=== PATIENT | male | born 1945 | race Caucasian/White ===

== ENCOUNTER 2016-12-24 08:39 | Observation (INO) | payer MEDICARE, MEDICAID ==
[2016-12-24] VITALS (10 sets, daily range): BP systolic 141–163; BP diastolic 70–82
[~2016-12-24] VITALS: Ht 175.3 cm; Wt 99.8 kg
--- NOTE | 2016-12-24 07:24 | Anethesia Preoperative Eval ---
Anesthesia Pre-op PMH/ROS General Date of Evaluation: Dec 24, 2016 Anesthesiologist: Jose A ASA Score: ASA 2 Mallampati Score Class I : Soft palate, uvula, fauces, pillars visible Class II: Soft palate, uvula, fauces visible Class III: Soft palate, base of uvula visible Class IV: Only hard plate visible Mallampati Classification: Class II Surgeon: Mariusz Diagnosis: Malfunctioning penile implant Surgical Procedure: Revision penile implant Anesthesia History: none Family History: no anesthesia problems Allergies: Coded Allergies: No Known Allergies (Unverified , 12/23/16) Medications: see eMAR Past Medical History Cardiovascular: Reports: HTN, arrhythmia - afib with bradycardia-baseline HR in the 40s, Denies: CAD, RI, other, valve dz Pulmonary: Denies: COPD, RISA, asthma, other Gastrointestinal/Genitourinary: Reports: other - BPH, Denies: CRI, ESRD, GERD Neurologic/Psychiatric: Denies: CVA, TIA, dementia, depression/anxiety, other Endocrine: Reports: DM, Denies: hypothyroidism, other, steroids HEENT: Denies: ROBINSON (L), ROBINSON (R), cataract (L), cataract (R), glaucoma, other Hematology/Immune: Denies: DVT, anemia, bleeding disorder, other Musculoskeletal/Integumentary: Denies: DDD, DJD, OA, RA, edema, other Other: obesity PSxH Narrative: eye sx, penile implant, lithotripsy Anesthesia Pre-op Phys. Exam Physician Exam see chart Constitutional: NAD Cardiovascular: other - irregular Respiratory: CTA Airway Exam Mallampati Score: Class II MO: limited ROM: limited Anesthesia Pre-op A/P Labs see chart Studies Pre-op Studies: EKG - afib with HR 41bmp Risk Assessment & Plan Assessment: ASA II Plan: GA Status Change Before Surgery: No Pre-Antibiotics Drug: Vanco 1g and gentamycin 80mg Given Within 1 Hr of Incision: Yes Time Given: 10:05 VALORIE ACUNA M.D. Dec 24, 2016 07:24
[~2016-12-24 08:39] MED LIST: Vancomycin 1 GM in D5W 275 ML IVPB ONE
[2016-12-24] MEDS ORDERED: Vancomycin 1gm inj IVPB ONE (09:06)
[2016-12-24] MEDS ORDERED: Bacitracin 50000 Units Vial ONE (09:07)
[2016-12-24] MEDS ORDERED: Surgicel 4in x 8in TOPIC ONE (09:07)
[2016-12-24] MEDS ORDERED: AVODART0.5 MG ORAL (09:35)
[2016-12-24] MEDS ORDERED: ATORVASTATIN CA10 MG ORAL (09:35)
[2016-12-24] MEDS ORDERED: KLOR-CON 88 MEQ ORAL (09:35)
[2016-12-24] MEDS ORDERED: ADALAT20 MG ORAL (09:35)
[2016-12-24] MEDS ORDERED: GLIMEPIRIDE2 MG ORAL (09:35)
[2016-12-24] MEDS ORDERED: BENICAR HCT 401 EAC1 ORAL (09:35)
[2016-12-24] MEDS ORDERED: XARELTO20 MG ORAL (09:35)
[2016-12-24] MEDS ORDERED: LORAZEPAM1 MG ORAL (09:36)
[2016-12-24] MEDS ORDERED: LORAZEPAM0.5 GM MC (09:36)
[2016-12-24] MEDS ORDERED: CAPTOPRIL12.5 MG PO (09:36)
--- NOTE | 2016-12-24 09:52 | Pre-Procedure Note/Attestation ---
Pre-Procedure Note/Attestation Complete Prior to Procedure Planned Procedure: not applicable Procedure Narrative: removal and replacement o0f IPP Indications for Procedure Pre-Operative Diagnosis: non functionin IPP Attestation I attest that I discussed the nature of the procedure; its benefits; risks and complications; and alternatives (and the risks and benefits of such alternatives ), prior to the procedure, with the patient (or the patient's legal energy conservation representative). I attest that, if there was a reasonable possibility of needing a blood transfusion, the patient (or the patient's legal energy conservation representative) was given the [facility] standardized written summary, pursuant to the [employer] Blood Safety Act ([place] Health and Safety Code # 1645, as amended). I attest that I re-evaluated the patient just prior to the surgery and that there has been no change in the patient's H&P, except as documented below: Eladio Vee MD Dec 24, 2016 09:51
--- NOTE | 2016-12-24 09:53 | Brief Operative Note ---
Immediate Post Operative Note Operative Note Pre-op Diagnosis: non functionin IPP Procedure: IPP replacement Post-op Diagnosis: same Post-op Diagnosis: same as pre-op Surgeon: Andrea Vee Anesthesia: general Specimen: yes Complications: none Condition: stable Estimated Blood Loss: minimal Implant(s) used?: Yes Eladio Vee MD Dec 24, 2016 09:53
[2016-12-24] MEDS ORDERED: Lidocaine 1% MPF 10mg/ml 5ml ONE (10:00)
[2016-12-24] MEDS ORDERED: Sterile Water Irrig 1000ml IRRIG ONE (10:00)
[2016-12-24] MEDS ORDERED: Propofol 10mg/ml 20ml IV ONE ×2 (10:00→10:06)
[2016-12-24] MEDS ORDERED: fentaNYL 100 mcg/2 mL IV ONE (10:00)
--- NOTE | 2016-12-24 10:42 | Immediate Post-Op Evaluation ---
Immediate Post-Op Evalulation Immediate Post-Op Evalulation Procedure: Revision penile prosthesis Date of Evaluation: Dec 24, 2016 Time of Evaluation: 12:41 IV Fluids: 600 Blood Products: 0 Estimated Blood Loss: 25 Urinary Output: 0 Blood Pressure Systolic: 141 Blood Pressure Diastolic: 73 Pulse Rate: 54 Respiratory Rate: 16 O2 Sat by Pulse Oximetry: 96 Temperature (Fahrenheit): 97 Pain Score (1-10): 0 Nausea: No Vomiting: No Complications 0 Patient Status: awake, reacts, patent, none Hydration Status: adequate Drug: Vanco 1g, gentamycin 80mg Given Within 1 Hr of Incision: Yes Time Given: 10:05 VALORIE ACUNA M.D. Dec 24, 2016 10:42
[2016-12-24] MEDS ORDERED: NS Irrig 1000ml IRRIG ONE (10:43)
[2016-12-24] MEDS ORDERED: LR 1000ml 1,000 ML IVLG SCH (10:51)
--- NOTE | 2016-12-24 10:59 | 48 Hour Post Anesthesia Eval ---
Post Anesthesia Evaluation Procedure: Revision penile prosthesis Date of Evaluation: Dec 24, 2016 Airway: patent Nausea: No Vomiting: No Pain Intensity: 0 Hydration Status: adequate Cardiopulmonary Status: at baseline Mental Status/LOC: patient returned to baseline Post-Anesthesia Complications: 0 Follow-up care needed: ready to discharge VALORIE ACUNA M.D. Dec 24, 2016 10:59
[2016-12-24] MEDS ORDERED: DiphenhydrAMINE 50mg/ml Inj IVP PRN (11:00)
[2016-12-24] MEDS ORDERED: Midazolam 2mg/2ml Inj IVP PRN (11:00)
[2016-12-24] MEDS ORDERED: Metoclopramide 10mg/2ml Inj IVP PRN (11:00)
[2016-12-24] MEDS ORDERED: Hydromorphone 0.5mg/0.5ml inj IVP PRN (11:00)
[2016-12-24] MEDS ORDERED: LORazepam Inj 2mg/ml 1ml IV PRN ×3 (11:00→22:45)
[2016-12-24] MEDS ORDERED: fentaNYL 100 mcg/2 mL IV PRN (11:00)
[2016-12-24 13:42] LABS: BASOPHILS % (AUTO) 0.7 % (0.0-2.0); EOSINOPHILS % (AUTO) 0.9 % (0.0-3.0); LYMPHOCYTES % (AUTO) 30.5 % (20.0-45.0); MEAN CORPUSCULAR HEMOGLOBIN 30.9 PG (27.0-31.0); MEAN CORPUSCULAR HGB CONC 32.2 G/DL (32.0-36.0); MEAN CORPUSCULAR VOLUME 96 FL (80-99); MEAN PLATELET VOLUME 8.5 FL (6.5-10.1); MONOCYTES % (AUTO) 11.1 % (1.0-10.0); NEUTROPHILS % (AUTO) 56.9 % (45.0-75.0); PLATELET COUNT 229 K/UL (150-450); RED BLOOD COUNT 4.51 M/UL (4.70-6.10); RED CELL DISTRIBUTION WIDTH 12.3 % (11.6-14.8); WHITE BLOOD COUNT 4.8 K/UL (4.8-10.8)
[2016-12-24 14:07] LABS: ANION GAP 10 (5-15); CALCIUM 8.9 mg/dL (8.6-10.2); CARBON DIOXIDE 26 mEQ/L (20-30); CHLORIDE 101 mEQ/L (98-107); CREATININE 1.3 mg/dL (0.7-1.2); HEMOLYSIS 9; POTASSIUM 3.6 mEQ/L (3.4-4.9); SODIUM 137 mEQ/L (135-145)
[2016-12-24] MEDS ORDERED: Ketorolac 30mg Inj IV PRN (14:30)
--- NOTE | 2016-12-24 14:38 | History and Physical ---
History of Present Illness General Date patient seen: Dec 24, 2016 Present Illness HPI 71 year old male with morbid obesity, DM, HTN admitted for removal and replacement of penile implant. Post operative pt is admitted for post op care. Allergies: Coded Allergies: No Known Allergies (Unverified , 12/23/16) Medication History Scheduled Atorvastatin Calcium* (Lipitor*), 10 MG ORAL BEDTIME, (Reported) Captopril (Captopril), 2.5 MG PO DAILY, (Reported) Dutasteride (Avodart), 0.5 MG ORAL DAILY, (Reported) Glimepiride (Glimepiride), 2 MG ORAL TID, (Reported) Lorazepam* (Lorazepam*), 1 MG ORAL DAILY, (Reported) Nifedipine (Nifedipine*), 60 MG ORAL DAILY, (Reported) Olmesartan/Hydrochlorothiazide 40-25MG (Benicar Hct 40-25 Mg Tablet), 1 TAB ORAL DAILY, (Reported) Potassium Chloride (Klor-Con 8), 8 MEQ ORAL DAILY, (Reported) Rivaroxaban (Xarelto), 20 MG ORAL DAILY, (Reported) Patient History Healthcare decision maker N Resuscitation status Advanced Directive on File Past Medical/Surgical History Past Medical/Surgical History: (1) Diabetes mellitus (2) HTN (hypertension) Review of Systems All Other Systems: negative except mentioned in HPI Physical Exam General Appearance: WD/WN Lines, tubes and drains: peripheral, central line HEENT: normocephalic, anicteric Neck: non-tender, normal alignment Respiratory/Chest: chest wall non-tender, lungs clear, normal breath sounds Breasts: no masses Cardiovascular/Chest: normal peripheral pulses Abdomen: normal bowel sounds, non tender Extremities: normal range of motion Last 24 Hour Vital Signs Date Time Temp Pulse Resp B/P Pulse Ox O2 Delivery O2 Flow Rate FiO2 12/24/16 13:45 98.0 43 20 163/75 98 Nasal Cannula 2.0 12/24/16 13:30 40 20 160/70 98 Nasal Cannula 2.0 12/24/16 13:15 46 20 155/73 98 Nasal Cannula 2.0 12/24/16 13:00 49 20 149/77 98 Nasal Cannula 2.0 12/24/16 12:46 49 20 150/82 99 Nasal Cannula 2.0 12/24/16 12:41 51 20 148/77 99 Room Air 12/24/16 12:40 54 16 96 12/24/16 12:36 97.0 51 20 141/73 99 Room Air 12/24/16 09:10 98.1 52 20 156/82 98 Room Air Laboratory Tests Test 12/24/16 13:20 White Blood Count 4.8 K/UL (4.8-10.8) Red Blood Count 4.51 M/UL (4.70-6.10) L Hemoglobin 13.9 G/DL (14.2-18.0) L Hematocrit 43.3 % (42.0-52.0) Mean Corpuscular Volume 96 FL (80-99) Mean Corpuscular Hemoglobin 30.9 PG (27.0-31.0) Mean Corpuscular Hemoglobin Concent 32.2 G/DL (32.0-36.0) Red Cell Distribution Width 12.3 % (11.6-14.8) Platelet Count 229 K/UL (150-450) Mean Platelet Volume 8.5 FL (6.5-10.1) Neutrophils (%) (Auto) 56.9 % (45.0-75.0) Lymphocytes (%) (Auto) 30.5 % (20.0-45.0) Monocytes (%) (Auto) 11.1 % (1.0-10.0) H Eosinophils (%) (Auto) 0.9 % (0.0-3.0) Basophils (%) (Auto) 0.7 % (0.0-2.0) Sodium Level 137 mEQ/L (135-145) Potassium Level 3.6 mEQ/L (3.4-4.9) Chloride Level 101 mEQ/L (98-107) Carbon Dioxide Level 26 mEQ/L (20-30) Anion Gap 10 (5-15) Blood Urea Nitrogen 22 mg/dL (7-23) Creatinine 1.3 mg/dL (0.7-1.2) H Estimat Glomerular Filtration Rate mL/min (>60) Glucose Level 110 mg/dL (74-106) H Calcium Level 8.9 mg/dL (8.6-10.2) Height (Feet): 5 Height (Inches): 9.00 Weight (Pounds): 220 Medications Current Medications Medications (Trade) Dose Ordered Sig/Silvano Route PRN Reason Start Time Stop Time Status Last Admin Dose Admin Acetaminophen (Tylenol) 650 mg Q4H PRN ORAL fever 12/24/16 14:45 01/23/17 14:44 UNV Acetaminophen (Tylenol) 650 mg Q6H PRN ORAL Mild Pain (Pain Scale 1-3) 12/24/16 14:30 01/23/17 14:29 Acetaminophen 650 mg 650 mg Q4H PRN ORAL T>100.5 12/24/16 14:30 01/23/17 14:29 Al Hydroxide/Mg Hydroxide (Mylanta II) 30 ml Q6H PRN ORAL dyspepsia 12/24/16 14:45 01/23/17 14:44 UNV Atorvastatin Calcium (Lipitor) 10 mg BEDTIME ORAL 12/24/16 21:00 01/23/17 20:59 UNV Captopril (Capoten) 2.5 mg EVERY 8 HOURS ORAL 12/24/16 22:00 01/23/17 21:59 UNV Dextrose (Dextrose 50%) STAT PRN IV Hypoglycemia 12/24/16 14:45 01/23/17 14:44 UNV Dextrose (Dextrose 50%) STAT PRN IV Hypoglycemia 12/24/16 14:45 01/23/17 14:44 UNV Dextrose/ Electrolytes (D5 0.45%NS W/ KCl 20mEq) 1,000 ml @ 100 mls/hr Q10H IV 12/24/16 16:00 01/23/17 15:59 Docusate Sodium (Colace) 100 mg TWICE A DAY ORAL 12/24/16 18:00 01/23/17 17:59 Heparin Sodium (Porcine) (Heparin 5000 units/ml) 5,000 units EVERY 12 HOURS SUBQ 12/24/16 21:00 01/23/17 20:59 UNV Hydromorphone HCl (Dilaudid) 1 mg Q3H PRN IVP pain score 4-6 12/24/16 15:00 12/31/16 14:59 Insulin Aspart (NovoLOG) BEFORE MEALS AND HS SUBQ 12/24/16 16:30 01/23/17 16:29 UNV Ketorolac Tromethamine (Toradol 30mg) 15 mg Q6H PRN IV BREAKTHROUGH PAIN 12/24/16 14:30 12/29/16 14:29 Lorazepam (Ativan 2mg/ml 1ml) 0.5 mg Q4H PRN IV For Anxiety 12/24/16 14:45 12/31/16 14:44 UNV Lorazepam (Ativan) 1 mg DAILY ORAL 12/25/16 09:00 01/01/17 08:59 UNV Morphine Sulfate (Morphine Sulfate) 1 mg EVERY 4 HOURS PRN IVP For Pain 12/24/16 14:45 12/31/16 14:44 UNV Ondansetron HCl (Zofran) 4 mg Q6H PRN IVP Nausea & Vomiting 12/24/16 14:30 01/23/17 14:29 Ondansetron HCl (Zofran) 4 mg Q6H PRN IVP Nausea & Vomiting 12/24/16 14:45 01/23/17 14:44 UNV Polyethylene Glycol (Miralax) 17 gm HSPRN PRN ORAL Constipation 12/24/16 14:45 01/23/17 14:44 UNV Temazepam (Restoril) 7.5 mg HSPRN PRN ORAL Insomnia 12/24/16 21:00 12/31/16 20:59 Vancomycin HCl/ Dextrose (Vancomycin 1250mg/D5W 250ml) 250 ml @ 166.667 mls/hr ONCE ONCE IVPB 12/24/16 18:00 12/24/16 19:29 Zolpidem Tartrate (Ambien) 5 mg HSPRN PRN ORAL Insomnia 12/24/16 14:45 01/23/17 14:44 UNV Assessment/Plan Problem List: (1) Malfunction of penile prosthesis ICD Codes: T83.490A - Other mechanical complication of implanted penile prosthesis, initial encounter SNOMED: 741662187 (2) Diabetes mellitus ICD Codes: E11.9 - Type 2 diabetes mellitus without complications SNOMED: 34495210 (3) HTN (hypertension) ICD Codes: I10 - Essential (primary) hypertension SNOMED: 86612010 Assessment/Plan monitor BP pain management keep rodriguez continue abx dvt prophylaxis hold SARAH Garrido Dec 24, 2016 14:38
[2016-12-24] MEDS ORDERED: Enalaprilat 2.5mg/2ml Inj IV PRN (14:45)
[2016-12-24] MEDS ORDERED: Mylanta II UD 30ml ORAL PRN (14:45)
[2016-12-24] MEDS ORDERED: Zolpidem 5mg tab ORAL PRN (14:45)
[2016-12-24] MEDS ORDERED: Miralax 17gm pkt ORAL PRN (14:45)
[2016-12-24] MEDS ORDERED: Morphine Sulfate 2mg/ml Inj IVP PRN (14:45)
[2016-12-24] MEDS ORDERED: HYDROmorphone 1mg/ml Carpuject IVP PRN (15:00)
[2016-12-24] MEDS ORDERED: D5 1/2NS w/KCl 20mEq 1,000 ML IV SCH (16:00)
[2016-12-24] MEDS: NovoLOG Insulin Flexpen SUBQ SCH ×2 (16:30→20:56)
[2016-12-24] MEDS ORDERED: Vancomycin 1250mg/D5W 250ml IVPB ONE (18:00)
[2016-12-24] MEDS ORDERED: Docusate 100mg cap ORAL SCH (18:00)
[2016-12-24] MEDS ORDERED: Heparin 5000 units/ml inj SUBQ SCH (21:00)
[2016-12-24] MEDS ORDERED: Captopril 25mg tab ORAL SCH (22:00)
[2016-12-24] MEDS: Captopril 25mg tab ORAL SCH (22:15)
[2016-12-24] MEDS: D5 1/2NS w/KCl 20mEq 1,000 ML IV SCH (22:15)
[2016-12-25] MEDS ORDERED: HYDROmorphone 1mg/ml Carpuject IVP PRN
[2016-12-25] MEDS ORDERED: Ketorolac 30mg Inj IV PRN (02:30)
[2016-12-25] MEDS ORDERED: Mylanta II UD 30ml ORAL PRN (02:45)
[2016-12-25 04:00] VITALS: BP 137/75
[2016-12-25] MEDS: Captopril 25mg tab ORAL SCH ×2 (06:00→14:53)
[2016-12-25 06:19] LABS: BASOPHILS % (AUTO) 0.9 % (0.0-2.0); EOSINOPHILS % (AUTO) 0.5 % (0.0-3.0); LYMPHOCYTES % (AUTO) 14.3 % (20.0-45.0); MEAN CORPUSCULAR HEMOGLOBIN 31.6 PG (27.0-31.0); MEAN CORPUSCULAR HGB CONC 33.1 G/DL (32.0-36.0); MEAN CORPUSCULAR VOLUME 95 FL (80-99); MEAN PLATELET VOLUME 9.1 FL (6.5-10.1); MONOCYTES % (AUTO) 8.9 % (1.0-10.0); NEUTROPHILS % (AUTO) 75.5 % (45.0-75.0); PLATELET COUNT 248 K/UL (150-450); RED BLOOD COUNT 4.62 M/UL (4.70-6.10); RED CELL DISTRIBUTION WIDTH 12.2 % (11.6-14.8); WHITE BLOOD COUNT 7.2 K/UL (4.8-10.8)
[2016-12-25 06:53] LABS: ALANINE AMINOTRANSFERASE 33 U/L (3-41); ALBUMIN/GLOBULIN RATIO 1.2 (1.0-2.7); ANION GAP 9 (5-15); ASPARTATE AMINO TRANSFERASE 30 U/L (5-40); CALCIUM 8.9 mg/dL (8.6-10.2); CARBON DIOXIDE 27 mEQ/L (20-30); CHLORIDE 100 mEQ/L (98-107); CHOLESTEROL 170 mg/dL (< 200); CREATININE 1.5 mg/dL (0.7-1.2); HEMOLYSIS 25; LDL CHOLESTEROL (CALC.) 114 mg/dL (60-99); SODIUM 136 mEQ/L (135-145); TOTAL PROTEIN 6.8 g/dL (6.6-8.7)
[2016-12-25 07:02] LABS: MAGNESIUM 1.8 mg/dL (1.7-2.5); PHOSPHORUS 3.7 mg/dL (2.5-4.8)
[2016-12-25 07:19] LABS: CRP QUANT 0.7 mg/dL (< 0.5)
[2016-12-25] MEDS: NovoLOG Insulin Flexpen SUBQ SCH ×2 (07:34→11:30)
[2016-12-25 08:00] VITALS: BP 136/63
[2016-12-25] MEDS: D5 1/2NS w/KCl 20mEq 1,000 ML IV SCH (08:57)
[2016-12-25] MEDS ORDERED: LORazepam 1mg tab ORAL SCH (09:00)
[2016-12-25] MEDS ORDERED: Docusate 100mg cap ORAL SCH (09:00)
[2016-12-25] MEDS ORDERED: Heparin 5000 units/ml inj SUBQ SCH (09:00)
[2016-12-25] MEDS ORDERED: Tubing IV Secondary IV ONE (10:48)
[2016-12-25] MEDS ORDERED: NS 275ml ONE (10:48)
--- NOTE | 2016-12-25 11:20 | 48 Hour Post Anesthesia Eval ---
Post Anesthesia Evaluation Procedure: Revision penile prosthesis Date of Evaluation: Dec 25, 2016 Time of Evaluation: 11:20 Nausea: No Vomiting: No Hydration Status: adequate Follow-up care needed: N/A Yvette Morrison MD Dec 25, 2016 11:20
[2016-12-25 12:00] VITALS: BP 131/72
[2016-12-25] MEDS ORDERED: Gentamicin 100mg/50ml Premix 50 ML IVPB ONE (12:00)
--- NOTE | 2016-12-25 12:26 | Pulmonology Progress Note ---
Assessment/Plan Problems: (1) HTN (hypertension) (2) Diabetes mellitus (3) Malfunction of penile prosthesis Assessment/Plan tolerated the procedure very well no pain Brambila dced waiting for pt to urinate on Xarelto, ? reason? Subjective ROS Limited/Unobtainable: No Interval Events: no pain, waiting to be discharged Allergies: Coded Allergies: No Known Allergies (Unverified , 12/23/16) Objective Last 24 Hour Vital Signs Date Time Temp Pulse Resp B/P Pulse Ox O2 Delivery O2 Flow Rate FiO2 12/25/16 08:00 97.9 40 18 136/63 95 Room Air 12/25/16 06:00 137/75 12/25/16 04:00 98.2 37 18 137/75 97 Nasal Cannula 2.0 12/24/16 22:15 137/70 12/24/16 21:39 Nasal Cannula 2.0 28 12/24/16 21:00 97 Nasal Cannula 2.0 28 12/24/16 19:57 161/74 12/24/16 19:53 41 20 161/74 97 Nasal Cannula 2.0 12/24/16 16:00 45 12/24/16 16:00 97.0 41 21 159/73 98 Room Air 12/24/16 13:45 98.0 43 20 163/75 98 Nasal Cannula 2.0 12/24/16 13:30 40 20 160/70 98 Nasal Cannula 2.0 12/24/16 13:15 46 20 155/73 98 Nasal Cannula 2.0 12/24/16 13:00 49 20 149/77 98 Nasal Cannula 2.0 12/24/16 12:46 49 20 150/82 99 Nasal Cannula 2.0 12/24/16 12:41 51 20 148/77 99 Room Air 12/24/16 12:40 54 16 96 12/24/16 12:36 97.0 51 20 141/73 99 Room Air Intake and Output 12/24/16 12/25/16 19:00 07:00 Intake Total 1000 ml 416.667 ml Output Total 675 ml 2150 ml Balance 325 ml -1733.333 ml Intake Oral 150 ml IV Total 1000 ml 266.667 ml Output Urine Total 650 ml 2150 ml Estimated Blood Loss 25 ml # Voids 1 # Bowel Movements 1 General Appearance: WD/WN, no acute distress HEENT: normocephalic, atraumatic Respiratory/Chest: chest wall non-tender, lungs clear Cardiovascular: normal peripheral pulses, normal rate Abdomen: normal bowel sounds, soft, non tender Genitourinary: normal external genitalia Extremities: no cyanosis Skin: no lesions Laboratory Tests 12/24/16 13:20: White Blood Count 4.8, Red Blood Count 4.51L, Hemoglobin 13.9L, Hematocrit 43.3 , Mean Corpuscular Volume 96, Mean Corpuscular Hemoglobin 30.9, Mean Corpuscular Hemoglobin Concent 32.2, Red Cell Distribution Width 12.3, Platelet Count 229, Mean Platelet Volume 8.5, Neutrophils (%) (Auto) 56.9, Lymphocytes (% ) (Auto) 30.5, Monocytes (%) (Auto) 11.1H, Eosinophils (%) (Auto) 0.9, Basophils (%) (Auto) 0.7, Sodium Level 137, Potassium Level 3.6, Chloride Level 101, Carbon Dioxide Level 26, Anion Gap 10, Blood Urea Nitrogen 22, Creatinine 1.3H, Estimat Glomerular Filtration Rate , Glucose Level 110H, Calcium Level 8.9 12/25/16 06:00: White Blood Count 7.2, Red Blood Count 4.62L, Hemoglobin 14.6, Hematocrit 44.1, Mean Corpuscular Volume 95, Mean Corpuscular Hemoglobin 31.6H, Mean Corpuscular Hemoglobin Concent 33.1, Red Cell Distribution Width 12.2, Platelet Count 248, Mean Platelet Volume 9.1, Neutrophils (%) (Auto) 75.5H, Lymphocytes (%) (Auto) 14.3L, Monocytes (%) (Auto) 8.9, Eosinophils (%) (Auto) 0.5, Basophils (%) (Auto ) 0.9, Sodium Level 136, Potassium Level 4.0, Chloride Level 100, Carbon Dioxide Level 27, Anion Gap 9, Blood Urea Nitrogen 21, Creatinine 1.5H, Estimat Glomerular Filtration Rate , Glucose Level 154H, Calcium Level 8.9, Erythrocyte Sedimentation Rate 16, Phosphorus Level 3.7, Magnesium Level 1.8, Total Bilirubin 0.8, Aspartate Amino Transf (AST/SGOT) 30, Alanine Aminotransferase ( ALT/SGPT) 33, Alkaline Phosphatase 56, C-Reactive Protein, Quantitative 0.7H, Total Protein 6.8, Albumin 3.8, Globulin 3.0, Albumin/Globulin Ratio 1.2, Triglycerides Level 108, Cholesterol Level 170, LDL Cholesterol 114H, HDL Cholesterol 34, Cholesterol/HDL Ratio 5.0H Current Medications Medications (Trade) Dose Ordered Sig/Silvano Route PRN Reason Start Time Stop Time Status Last Admin Dose Admin Acetaminophen (Tylenol) 650 mg Q4H PRN ORAL T>100.5 12/24/16 22:30 01/23/17 22:29 Acetaminophen (Tylenol) 650 mg Q6H PRN ORAL Mild Pain (Pain Scale 1-3) 12/25/16 02:30 01/24/17 02:29 Al Hydroxide/Mg Hydroxide (Mylanta II) 30 ml Q6H PRN ORAL dyspepsia 12/25/16 02:45 01/24/17 02:44 Atorvastatin Calcium (Lipitor) 10 mg BEDTIME ORAL 12/25/16 21:00 01/24/17 20:59 Captopril (Capoten) 25 mg EVERY 8 HOURS ORAL 12/24/16 22:15 01/23/17 22:14 Dextrose (Dextrose 50%) STAT PRN IV Hypoglycemia 12/25/16 14:45 01/24/17 14:44 Dextrose/ Electrolytes (D5 0.45%NS W/ KCl 20mEq) 1,000 ml @ 100 mls/hr Q10H IV 12/24/16 22:15 01/23/17 22:14 12/25/16 08:57 Docusate Sodium (Colace) 100 mg TWICE A DAY ORAL 12/25/16 09:00 01/24/17 08:59 12/25/16 08:56 Gentamicin Sulfate/Sodium Chloride (Gentamicin 100mg/50ml Premix) 50 ml @ 100 mls/hr ONCE ONCE IVPB 12/25/16 12:00 12/25/16 12:29 Heparin Sodium (Porcine) (Heparin 5000 units/ml) 5,000 units EVERY 12 HOURS SUBQ 12/25/16 09:00 01/24/17 08:59 12/25/16 08:58 Hydromorphone HCl (Dilaudid) 1 mg Q3H PRN IVP pain score 4-6 12/25/16 00:00 01/01/17 00:00 Insulin Aspart (NovoLOG) BEFORE MEALS AND HS SUBQ 12/25/16 06:30 01/24/17 06:29 12/25/16 07:34 Ketorolac Tromethamine (Toradol 30mg) 15 mg Q6H PRN IV BREAKTHROUGH PAIN 12/25/16 02:30 12/30/16 02:29 Lorazepam (Ativan 2mg/ml 1ml) 0.5 mg Q4H PRN IV For Anxiety 12/24/16 22:45 12/31/16 22:44 Ondansetron HCl (Zofran) 4 mg Q6H PRN IVP Nausea & Vomiting 12/25/16 02:30 01/24/17 02:29 Polyethylene Glycol (Miralax) 17 gm HSPRN PRN ORAL Constipation 12/25/16 14:45 01/24/17 14:44 Temazepam 7.5 mg 7.5 mg HSPRN PRN ORAL Insomnia 12/25/16 21:00 01/01/17 20:59 Vancomycin HCl 1 gm/Dextrose 275 ml @ 183.708 mls/hr ONCE ONCE IVPB 12/25/16 12:45 12/25/16 14:14 SARAH LEMA Dec 25, 2016 12:26
[2016-12-25] MEDS ORDERED: Vancomycin 1 GM in D5W 275 ML IVPB ONE (12:45)
[2016-12-25] MEDS ORDERED: Miralax 17gm pkt ORAL PRN (14:45)
[2016-12-25 14:53] VITALS: BP 131/72
--- NOTE | 2016-12-27 03:00 | Discharge Summary 2 SIG ---
DATE OF ADMISSION: 12/24/2016 DATE OF DISCHARGE: 12/25/2016 BOOKKEEPERS SUPERVISOR: Fareed Hardy M.D. BRIEF HOSPITAL COURSE: The patient is a 71-year-old male with morbid obesity, diabetes, and hypertension and had a nonfunctioning penile implant. The patient was admitted on 12/24/2016 and underwent IPP replacement by Dr. Vee. Postoperatively, he was given pain management and blood pressure control. He was continued on IV antibiotic, Zosyn. He was given incentive spirometry. He had good pain control. Brambila was discontinued. The patient urinated. He was eventually discharged home. FINAL DIAGNOSES: 1. Nonfunctioning inflatable penile prosthesis, status post replacement. 2. Diabetes mellitus. 3. Hypertension. Eladio Vee M.D. I have been assigned to dictate discharge summary on this account and I was not involved in the patient's management. Maribell Valdez N.P. DR: Jena JOB#: [id number] CC: CINTHIA
--- NOTE | 2016-12-30 20:46 | Operative Note - Dictated ---
DATE OF OPERATION: 12/24/2016 PREOPERATIVE DIAGNOSES: Poorly functioning penile prosthesis. POSTOPERATIVE DIAGNOSES: Poorly functioning penile prosthesis. OPERATION: Removal of two-piece penile prosthesis and placement of three-piece penile prosthesis. SURGEON: Eladio Vee M.D. ANESTHESIA: General. FINDINGS: Nonfunctioning penile prosthesis. INDICATION FOR SURGERY: The patient had several years ago prosthesis placed started to deflate in the middle of intercourse. Treatment options were explained to him and he agreed for substitution of the prosthesis. All potential complications were explained. He signed a consent. He was brought to the operating room, placed in lithotomy position, prepped and draped in a standard fashion. Under general anesthesia, a penoscrotal incision was made and the old prosthesis was removed for pathologic examination. After that, corpora was copiously irrigated and 27 cm size was noticed and 21 cm prosthesis with 6 cm rear tip adapters were placed. Cylinders were secured and the corpora was closed in a continuous fashion. A reservoir was placed in the retrovesical space using infra-inguinal approach and filled with 100 mL of normal saline. After that, a pump was placed position, secured, and the wound was closed in 3 layers and subcuticular closure for the skin. The patient tolerated the procedure well. No evidence of complications. Eladio Vee M.D. DR: DA JOB#: [id number] CC:
== END 2016-12-25 16:00 | disposition home or self-care (01) ==
LOC: SUR 08:39 → INTOOBSV 14:15 → 2E 14:15 → OBSVTOIN 14:15 → 3E 22:30
DX: T83.410A Breakdown (mechanical) of implanted penile prosthesis, initial encounter (principal); Y83.8 Other surgical procedures as the cause of abnormal reaction of the patient, or of later complication, without mention of misadventure at the time of the procedure; Y92.89 Other specified places as the place of occurrence of the external cause; E11.9 Type 2 diabetes mellitus without complications; Z79.4 Long term (current) use of insulin; Z79.84 Long term (current) use of oral hypoglycemic drugs; E66.01 Morbid (severe) obesity due to excess calories; I48.91 Unspecified atrial fibrillation; R00.1 Bradycardia, unspecified; N40.0 Benign prostatic hyperplasia without lower urinary tract symptoms
CPT/HCPCS: 36415 ×2; 54410; 80048; 80053; 80061; 82962 ×2; 83735; 84100; 85025 ×2; 85651; 86140; 94760; C1813; G0378 ×2; J1580 ×3; J1644; J1815 ×2; J2405; J2704; J3010; J3370 ×3; J7050; 94003; 94150

== ENCOUNTER 2018-02-03 07:30 | Inpatient (IN) | payer MEDICARE, MEDICAID ==
[~2018-02-03] VITALS: Ht 175.3 cm; Wt 101.6 kg
[~2018-02-03 07:30] MED LIST changes: +ADALAT20 MG ORAL; +ATORVASTATIN CA10 MG ORAL; +AVODART0.5 MG ORAL; +BENICAR HCT 401 EAC1 ORAL; +CAPTOPRIL12.5 MG PO; +GLIMEPIRIDE2 MG ORAL; +KLOR-CON 88 MEQ ORAL; +LORAZEPAM0.5 GM MC; +LORAZEPAM1 MG ORAL; -Vancomycin 1 GM in D5W 275 ML IVPB ONE; +XARELTO20 MG ORAL
[2018-05-05] VITALS (10 sets, daily range): BP systolic 91–138; BP diastolic 62–88
[2018-05-05] MEDS ORDERED: ceFAZolin sod 1 GM in NS 55 ML IVPB ONE (07:00)
[2018-05-05] MEDS ORDERED: MAGNESIUM OXID500 M1 PO (12:19)
[2018-05-05] MEDS ORDERED: DEXILANT60 MG ORAL (12:20)
[2018-05-05] MEDS ORDERED: SPIRONOLACTONE25 MG ORAL (12:21)
[2018-05-05] MEDS ORDERED: REPATHA SY140 MG/1 M SQ (12:23)
[2018-05-05] MEDS ORDERED: ADVAIR 250-501 EACH INH (12:24)
[2018-05-05] MEDS ORDERED: XARELTO10 MG ORAL (12:25)
[2018-05-05] MEDS ORDERED: FUROSEMIDE20 M1 ORAL (12:26)
[2018-05-05] MEDS ORDERED: CATAPRES-TTS 31 EACH TDERMAL (12:29)
[2018-05-05] MEDS ORDERED: NORVASC5 MG ORAL (12:30)
[2018-05-05] MEDS ORDERED: CARDURA1 MG ORAL (12:31)
--- NOTE | 2018-05-05 14:58 | Pre-Procedure Note/Attestation ---
Pre-Procedure Note/Attestation Complete Prior to Procedure Planned Procedure: not applicable Procedure Narrative: TURP Indications for Procedure Pre-Operative Diagnosis: hematuria Attestation I attest that I discussed the nature of the procedure; its benefits; risks and complications; and alternatives (and the risks and benefits of such alternatives ), prior to the procedure, with the patient (or the patient's legal aircraft sales representative). I attest that, if there was a reasonable possibility of needing a blood transfusion, the patient (or the patient's legal aircraft sales representative) was given the [facility] standardized written summary, pursuant to the [place]rav[place] Blood Safety Act ([place] Health and Safety Code # 1645, as amended). I attest that I re-evaluated the patient just prior to the surgery and that there has been no change in the patient's H&P, except as documented below: Eladio Vee MD May 05, 2018 14:58
[2018-05-05] MEDS ORDERED: LR 1000ml 1,000 ML IVLG SCH (15:28)
[2018-05-05] MEDS ORDERED: HYDROcodone/Acetamin 7.5/325 tab ORAL PRN (15:30)
[2018-05-05] MEDS ORDERED: DiphenhydrAMINE 50mg/ml Inj IVP PRN (15:30)
[2018-05-05] MEDS ORDERED: LORazepam Inj 2mg/ml 1ml IV PRN (15:30)
[2018-05-05] MEDS ORDERED: Hydromorphone 0.5mg/0.5ml inj IVP PRN (15:30)
[2018-05-05] MEDS ORDERED: Acetaminophen (Non formulary) 100 ML IV ONE (15:30)
[2018-05-05] MEDS ORDERED: oxyCODONE HCL/Acetaminophen 5/325mg ORAL PRN (15:30)
[2018-05-05] MEDS ORDERED: Meperidine 50mg/ml Inj(FOR RIGORS ONLY) IVP PRN (15:30)
[2018-05-05] MEDS ORDERED: Metoclopramide 10mg/2ml Inj IVP PRN (15:30)
[2018-05-05] MEDS ORDERED: fentaNYL 100 mcg/2 mL IV PRN (15:30)
[2018-05-05] MEDS ORDERED: Ketorolac 30mg Inj IV PRN ×2 (15:30)
[2018-05-05] MEDS ORDERED: Norco 5mg/325mg tab ORAL PRN ×2 (15:30→17:00)
[2018-05-05] MEDS ORDERED: Midazolam 2mg/2ml Inj IVP PRN (15:30)
[2018-05-05] MEDS ORDERED: Atropine Sulfate 0.4mg/ml inj IVP PRN (15:30)
--- NOTE | 2018-05-05 15:32 | Anethesia Preoperative Eval ---
Anesthesia Pre-op PMH/ROS General Date of Evaluation: May 05, 2018 Time of Evaluation: 16:32 Anesthesiologist: Kenton ASA Score: ASA 3 Mallampati Score Class I : Soft palate, uvula, fauces, pillars visible Class II: Soft palate, uvula, fauces visible Class III: Soft palate, base of uvula visible Class IV: Only hard plate visible Mallampati Classification: Class II Surgeon: Mariusz Diagnosis: BPH Surgical Procedure: TURP Anesthesia History: none Family History: no anesthesia problems Allergies: Coded Allergies: No Known Allergies (Unverified , 05/04/18) Medications: see eMAR Patient NPO?: Yes NPO Date: May 04, 2018 NPO Time: 1999 Past Medical History Cardiovascular: Reports: HTN, CAD, other - Pacemaker Endocrine: Reports: DM HEENT: Reports: cataract (L), cataract (R) Anesthesia Pre-op Phys. Exam Physician Exam Last Vital Signs Date Time Temp Pulse Resp B/P (MAP) Pulse Ox O2 Delivery O2 Flow Rate FiO2 05/05/18 12:42 Room Air 05/05/18 12:41 98.1 70 18 137/78 (97) 96 Constitutional: NAD Neurologic: CN 2-12 intact Cardiovascular: RRR Respiratory: CTA Gastrointestinal: S/NT/ND Airway Exam Mallampati Score: Class II MO: full ROM: limited Teeth: missing Anesthesia Pre-op A/P Risk Assessment & Plan Assessment: ASA 3 Plan: GA Status Change Before Surgery: No Pre-Antibiotics Dru grams Ancef IV Given Within 1 Hr of Incision: Yes Time Given: 16:37 Ezio Fung MD May 05, 2018 15:32
--- NOTE | 2018-05-05 15:33 | Immediate Post-Op Evaluation ---
Immediate Post-Op Evalulation Immediate Post-Op Evalulation Procedure: TURP Date of Evaluation: May 05, 2018 Time of Evaluation: 18:07 IV Fluids: 900 LR Blood Products: 0 Estimated Blood Loss: 20 Urinary Output: 0 Blood Pressure Systolic: 98 Blood Pressure Diastolic: 63 Pulse Rate: 69 Respiratory Rate: 16 O2 Sat by Pulse Oximetry: 96 Temperature (Fahrenheit): 98.5 Pain Score (1-10): 2 Nausea: No Vomiting: No Complications 0 Patient Status: awake, reacts, patent, none Hydration Status: adequate Dru Grams Ancef IV Given Within 1 Hr of Incision: Yes Time Given: 16:38 Ezio Fung MD May 05, 2018 15:33
[2018-05-05] MEDS ORDERED: Sodium Chloride 10ml vial INJ ONE (15:59)
[2018-05-05] MEDS ORDERED: Lidocaine 1% MPF 10mg/ml 5ml ONE (15:59)
[2018-05-05] MEDS ORDERED: fentaNYL 100 mcg/2 mL IV ONE ×2 (16:05→17:15)
[2018-05-05] MEDS ORDERED: Midazolam 2mg/2ml Inj ONE (16:05)
[2018-05-05] MEDS ORDERED: NS Irrig 4000ml IRRIG ONE (16:30)
[2018-05-05] MEDS ORDERED: Sterile Water Irrig 1000ml IRRIG ONE (16:30)
[2018-05-05] MEDS ORDERED: LR 1000ml ONE (16:30)
--- NOTE | 2018-05-05 16:49 | Brief Operative Note ---
Immediate Post Operative Note Operative Note Pre-op Diagnosis: hematuria Procedure: turp Post-op Diagnosis: SAME Post-op Diagnosis: same as pre-op Surgeon: Andrea Vee Anesthesia: general Specimen: yes Complications: none Condition: stable Fluids: 1000 Estimated Blood Loss: minimal Implant(s) used?: No Eladio Vee MD May 05, 2018 16:49
[2018-05-05] MEDS ORDERED: HYDROmorphone 1mg/ml Carpuject IVP PRN (17:00)
[2018-05-05 18:51] LABS: BASOPHILS % (AUTO) 0.6 % (0.0-2.0); EOSINOPHILS % (AUTO) 1.3 % (0.0-3.0); HEMATOCRIT 39.4 % (42.0-52.0); LYMPHOCYTES % (AUTO) 25.5 % (20.0-45.0); MEAN CORPUSCULAR VOLUME 90 FL (80-99); NEUTROPHILS % (AUTO) 63.7 % (45.0-75.0); PLATELET COUNT 182 K/UL (150-450); RED BLOOD COUNT 4.39 M/UL (4.70-6.10); RED CELL DISTRIBUTION WIDTH 12.5 % (11.6-14.8); WHITE BLOOD COUNT 4.8 K/UL (4.8-10.8)
[2018-05-05 19:01] LABS: ANION GAP 5 mmol/L (5-15); BLOOD UREA NITROGEN 35 mg/dL (7-18); CALCIUM 8.9 MG/DL (8.5-10.1); CARBON DIOXIDE 31 MMOL/L (21-32); CHLORIDE 106 MMOL/L (98-107); CREATININE 1.8 MG/DL (0.55-1.30); POTASSIUM 4.3 MMOL/L (3.5-5.1); SODIUM 142 MMOL/L (136-145)
[2018-05-05] MEDS ORDERED: D5 1/2NS w/KCl 20mEq 1,000 ML IV SCH (20:00)
[2018-05-05] MEDS: ceFAZolin sod 1 GM in D5W 55 ML IV SCH (23:53)
[2018-05-06] VITALS: BP 129/76
[2018-05-06] MEDS: NovoLOG Insulin Flexpen SUBQ SCH ×4 (06:48→21:24)
[2018-05-06 07:13] LABS: BASOPHILS % (AUTO) 0.3 % (0.0-2.0); EOSINOPHILS % (AUTO) 0.1 % (0.0-3.0); HEMATOCRIT 41.5 % (42.0-52.0); HEMOGLOBIN 13.8 G/DL (14.2-18.0); LYMPHOCYTES % (AUTO) 10.9 % (20.0-45.0); MEAN CORPUSCULAR VOLUME 90 FL (80-99); NEUTROPHILS % (AUTO) 82.6 % (45.0-75.0); PLATELET COUNT 182 K/UL (150-450); RED BLOOD COUNT 4.61 M/UL (4.70-6.10); RED CELL DISTRIBUTION WIDTH 12.3 % (11.6-14.8); WHITE BLOOD COUNT 8.9 K/UL (4.8-10.8)
[2018-05-06 07:28] LABS: ANION GAP 8 mmol/L (5-15); BLOOD UREA NITROGEN 29 mg/dL (7-18); CALCIUM 9.3 MG/DL (8.5-10.1); CARBON DIOXIDE 27 MMOL/L (21-32); CHLORIDE 105 MMOL/L (98-107); CREATININE 1.6 MG/DL (0.55-1.30); POTASSIUM 4.4 MMOL/L (3.5-5.1); SODIUM 140 MMOL/L (136-145)
[2018-05-06 08:00] VITALS: BP 152/81
[2018-05-06] MEDS: Docusate 100mg cap ORAL SCH ×2 (08:48→17:45)
[2018-05-06] MEDS: Doxazosin 1mg Tab ORAL SCH (08:48)
[2018-05-06] MEDS: ceFAZolin sod 1 GM in D5W 55 ML IV SCH (08:49)
[2018-05-06] MEDS: Advair 250/50 Inhaler - 14 dose INH SCH ×2 (09:05→21:20)
[2018-05-06 12:00] VITALS: BP 141/83
--- NOTE | 2018-05-06 12:13 | 48 Hour Post Anesthesia Eval ---
Post Anesthesia Evaluation Procedure: TURP Date of Evaluation: May 06, 2018 Time of Evaluation: 12:11 Blood Pressure Systolic: 148 0: 76 Pulse Rate: 74 Respiratory Rate: 20 Temperature (Fahrenheit): 97.6 O2 Sat by Pulse Oximetry: 98 Airway: patent Nausea: No Vomiting: No Pain Intensity: 3 Hydration Status: adequate Cardiopulmonary Status: stable Mental Status/LOC: patient returned to baseline Follow-up Care/Observations: n/a Post-Anesthesia Complications: none Follow-up care needed: N/A Bharath Aguilar MD May 06, 2018 12:13
[2018-05-06 16:00] VITALS: BP 135/96
--- NOTE | 2018-05-06 17:00 | Consultation ---
DATE OF CONSULTATION: 05/06/2018 INTERNAL MEDICINE CONSULTATION HISTORY OF PRESENT ILLNESS: This is a very pleasant 72-year-old male, who is postoperative day #1 status post TURP. At this point, he has a Brambila catheter in place with bladder irrigation in place. The urine is dark red in color. The patient at this time report . PAST MEDICAL HISTORY: Hypertension, diabetes mellitus, atrial flutter status post radiofrequency ablation. He also history of has a history of pacemaker implantation. He also reports history of GERD. HOME MEDICATIONS: Glimepiride, magnesium oxide, Dexilant, Aldactone, Repatha, Pulmicort, Xarelto, Lasix, potassium, Catapres, Norvasc and Cardura. ALLERGIES: None. SOCIAL HISTORY: He denies alcohol or tobacco usage. REVIEW OF SYSTEMS: Denies any headaches, hematemesis, melena, hematochezia. PHYSICAL EXAMINATION: HEENT: Unremarkable. LUNGS: Clear breath sounds bilaterally. ABDOMEN: Soft. NEUROLOGIC: Nonfocal. LABORATORY DATA: Lab testing has shown hemoglobin yesterday was 13.8. Chemistry is unremarkable. Creatinine 1.6. IMPRESSION: 1. Postop day #1, status post TURP. 2. Significant hematuria. 3. Permanent pacemaker. 4. Hypertension. 5. Diabetes mellitus. 6. GERD. DISCUSSION: 1. Continue home medications. 2. We will avoid Xarelto at this point in time. 3. Continue Tylenol, Norvasc, Colace, Cardura, Lasix, pain control, insulin sliding scale, Zofran, Protonix, Advair, and Restoril. 4. We will check CBC in a.m. 5. We will follow carefully. Ramiro Villa M.D. DR: Kavon JOB#: [id number] CC:
[2018-05-06 20:00] VITALS: BP 145/84
[2018-05-07] VITALS: BP 135/77
[2018-05-07 04:00] VITALS: BP 135/79
[2018-05-07] MEDS: NovoLOG Insulin Flexpen SUBQ SCH ×2 (05:41→12:14)
[2018-05-07 07:11] LABS: ANION GAP 5 mmol/L (5-15); BLOOD UREA NITROGEN 28 mg/dL (7-18); CALCIUM 8.9 MG/DL (8.5-10.1); CARBON DIOXIDE 29 MMOL/L (21-32); CHLORIDE 106 MMOL/L (98-107); CREATININE 1.7 MG/DL (0.55-1.30); POTASSIUM 3.9 MMOL/L (3.5-5.1); SODIUM 140 MMOL/L (136-145)
[2018-05-07 07:17] LABS: BASOPHILS % (AUTO) 0.3 % (0.0-2.0); HEMATOCRIT 39.3 % (42.0-52.0); HEMOGLOBIN 13.2 G/DL (14.2-18.0); LYMPHOCYTES % (AUTO) 11.9 % (20.0-45.0); MEAN CORPUSCULAR VOLUME 90 FL (80-99); MONOCYTES % (AUTO) 7.8 % (1.0-10.0); PLATELET COUNT 162 K/UL (150-450); RED BLOOD COUNT 4.35 M/UL (4.70-6.10); RED CELL DISTRIBUTION WIDTH 12.5 % (11.6-14.8); WHITE BLOOD COUNT 7.5 K/UL (4.8-10.8)
[2018-05-07 08:00] VITALS: BP 133/80
--- NOTE | 2018-05-07 08:34 | Pulmonology Progress Note ---
Assessment/Plan Assessment/Plan IMPRESSION: 1. Postop day #2, status post TURP. 2. Ongoing hematuria. Hgb 13.2 3. Permanent pacemaker. 4. Hypertension. 5. Diabetes mellitus. 6. GERD. DISCUSSION: 1. Continue home medications. 2. I will avoid Xarelto at this point in time. 3. Continue Tylenol, Norvasc, Colace, Cardura, Lasix, pain control, insulin sliding scale, Zofran, Protonix, Advair, and Restoril. 4. I will follow carefully. Subjective Interval Events: Still having hematuria; bladder irrigation in place Constitutional: Reports: no symptoms HEENT: Repors: no symptoms Respiratory: Reports: no symptoms Cardiovascular: Reports: no symptoms Genitourinary: Reports: hematuria Neurologic: Reports: no symptoms Psychiatric: Reports: no symptoms Allergies: Coded Allergies: No Known Allergies (Unverified , 05/04/18) Objective Last 24 Hour Vital Signs Date Time Temp Pulse Resp B/P (MAP) Pulse Ox O2 Delivery O2 Flow Rate FiO2 05/07/18 04:00 98.2 70 17 135/79 (97) 96 05/07/18 00:00 98.3 70 18 135/77 (96) 96 05/06/18 21:24 88 20 98 Room Air 21 05/06/18 21:24 79 20 97 Room Air 21 05/06/18 21:21 79 20 Room Air 21 05/06/18 21:00 Room Air 05/06/18 20:00 98.5 70 19 145/84 (104) 94 05/06/18 16:00 98.6 71 20 135/96 (109) 94 05/06/18 12:40 98.4 05/06/18 12:13 74 20 98 05/06/18 12:00 99.8 71 19 141/83 (102) 96 05/06/18 09:08 85 14 99 Room Air 21 05/06/18 09:04 81 16 98 Room Air 21 05/06/18 09:04 81 16 Room Air 21 05/06/18 09:00 Nasal Cannula 3.0 05/06/18 08:49 73 152/81 Intake and Output 05/06/18 05/07/18 19:00 07:00 Intake Total 87132 ml 480 ml Output Total 75052 ml 2700 ml Balance 373 ml -2220 ml Intake Oral 118 ml 480 ml IV Total 55 ml Other 33174 ml Output Urine Total 18131 ml 2700 ml # Bowel Movements 2 General Appearance: no acute distress HEENT: normocephalic Respiratory/Chest: chest wall non-tender, lungs clear Cardiovascular: normal peripheral pulses, regular rhythm Abdomen: normal bowel sounds, soft, non tender Laboratory Tests 05/07/18 05:35: White Blood Count 7.5, Red Blood Count 4.35L, Hemoglobin 13.2L, Hematocrit 39.3L , Mean Corpuscular Volume 90, Mean Corpuscular Hemoglobin 30.4, Mean Corpuscular Hemoglobin Concent 33.7, Red Cell Distribution Width 12.5, Platelet Count 162, Mean Platelet Volume 8.5, Neutrophils (%) (Auto) 78.0H, Lymphocytes ( %) (Auto) 11.9L, Monocytes (%) (Auto) 7.8, Eosinophils (%) (Auto) 2.0, Basophils (%) (Auto) 0.3, Sodium Level 140, Potassium Level 3.9, Chloride Level 106, Carbon Dioxide Level 29, Anion Gap 5, Blood Urea Nitrogen 28H, Creatinine 1.7H, Estimat Glomerular Filtration Rate , Glucose Level 145H, Calcium Level 8.9 Current Medications Medications (Trade) Dose Ordered Sig/Silvano Route PRN Reason Start Time Stop Time Status Last Admin Dose Admin Acetaminophen (Tylenol) 650 mg Q4H PRN ORAL FEVER 05/05/18 17:00 06/04/18 16:59 05/06/18 12:10 Acetaminophen (Tylenol) 650 mg Q6H PRN ORAL Mild Pain (Pain Scale 1-3) 05/05/18 17:00 06/04/18 16:59 Acetaminophen/ Hydrocodone Bitart ([place] 5/325) 1 tab Q4H PRN ORAL Moderate Pain (Pain Scale 4-6) 05/05/18 17:00 05/12/18 16:59 Amlodipine Besylate (Norvasc) 5 mg DAILY ORAL 05/06/18 09:00 06/05/18 08:59 05/06/18 08:49 Dextrose (Dextrose 50%) 25 ml Q30M PRN IV Hypoglycemia 05/05/18 21:30 06/04/18 21:29 Dextrose (Dextrose 50%) 50 ml Q30M PRN IV Hypoglycemia 05/05/18 21:30 06/04/18 21:29 Docusate Sodium (Colace) 100 mg TWICE A DAY ORAL 05/06/18 09:00 06/05/18 08:59 05/06/18 17:45 Doxazosin Mesylate (Cardura) 2 mg DAILY ORAL 05/06/18 09:00 06/05/18 08:59 05/06/18 08:48 Furosemide (Lasix) 20 mg BID ORAL 05/06/18 09:00 06/05/18 08:59 05/06/18 17:45 Hydromorphone HCl (Dilaudid) 1 mg Q3H PRN IVP pain score 4-6 05/05/18 17:00 05/12/18 16:59 Insulin Aspart (NovoLOG) BEFORE MEALS AND HS SUBQ 05/06/18 06:30 06/05/18 06:29 05/07/18 05:41 Ondansetron HCl (Zofran) 4 mg Q6H PRN IVP Nausea & Vomiting 05/05/18 21:30 06/04/18 21:29 05/05/18 21:31 Pantoprazole (Protonix) 40 mg DAILY ORAL 05/06/18 09:00 06/05/18 08:59 05/06/18 08:48 Salmeterol Xinafoate/ Fluticasone (Advair 250/50 Diskus) 2 puffs EVERY 12 HOURS INH 05/06/18 09:00 06/05/18 08:59 05/06/18 21:20 Temazepam (Restoril) 7.5 mg DAILYPRN PRN ORAL Insomnia 05/05/18 17:00 05/12/18 16:59 05/06/18 22:07 Ramiro Villa MD May 07, 2018 08:34
[2018-05-07] MEDS: Doxazosin 1mg Tab ORAL SCH (08:46)
[2018-05-07] MEDS: Docusate 100mg cap ORAL SCH (08:46)
[2018-05-07] MEDS: Advair 250/50 Inhaler - 14 dose INH SCH (08:53)
[2018-05-07 12:00] VITALS: BP 119/73
[2018-05-07] MEDS ORDERED: NS Irrig 4000ml IRRIG ONE ×3 (13:34)
--- NOTE | 2018-05-10 09:45 | Discharge Summary ---
Discharge Summary Hospital Course Date of Admission May 05, 2018 at 11:35 Date of Discharge May 07, 2018 at 13:35 Admitting Diagnosis hematuria, enlarged prostate Reason for Hospitalization: elective surgery HPI Malcolm Sibley is a 72 year old male who was admitted on May 05, 2018 at 11: 35 for Enlarged Prostate Consultations dr Villa IM Procedures s/p 05/[address] Vee Transurethral resection of the prostate. Hospital Course s/p surgery course of recovery uneventful Initially IVF status post perioperative antibiotics continuous bladder irrigation implemented after surgery with manual irrigation as needed no clots hemoglobin and hematocrit were clsoely monitored and remained stable; prior to discharge: hemoglobin 13.2 hematocrit 39.3 pain management was addressed, and pain was controlled home medications resumed blood pressure was managed with current regimen and remained stable patient was able to ambulate with physical therapist fall precautions maintained patient was slowly started on diet and advanced as tolerated patient was able to tolerate diet bowel regimen instituted hematuria resolved, hemoglobin and hematocrit remained stable, patient was hemodynamically stable, pain controlled, tolerated diet, ambulated patient was ready for discharge discharge instruction provided Brambila catheter changed to leg bag prior to discharge patient to follow-up with surgeon as outpatient as advised FINAL DIAGNOSES Hematuria BPH s/p TURP Hypertension Permanent pacemaker Diabetes mellitus GERD Discharge Medications Continued Medications: Amlodipine Besylate (Norvasc) 5 Mg Tablet 5 MG ORAL DAILY, TAB (This prescription has been renewed) Vuocqaodb-Ibk-8* (Qeeeszhs-Lqj-9*) 1 Each Patch.tdwk 1 PATCH TDERMAL ONCE A WEEK, PATCH (This prescription has been renewed) Dexlansoprazole (Dexilant) 60 Mg Domingo.bp 60 MG ORAL DAILY, CAP (This prescription has been renewed) Doxazosin Mesylate* (Cardura*) 1 Mg Tablet 2 MG ORAL DAILY, TAB (This prescription has been renewed) Evolocumab (Repatha Syringe) 140 Mg/1 Ml Syringe 140 MG SQ [id number] (This prescription has been renewed) Fluticasone/Salmeterol (Advair 250-50 Diskus) 1 Each Blst.w.dev 2 PUFF INH EVERY 12 HOURS, EA (This prescription has been renewed) Furosemide* (Lasix*) 20 Mg Tablet 20 MG ORAL BID, TAB Spironolactone* (Aldactone*) 25 Mg Tablet 25 MG ORAL BID, TAB (This prescription has been renewed) Discontinued Medications: Rivaroxaban (Xarelto*) 10 Mg Tablet 15 MG ORAL DAILY, #30 TAB 0 Refills Discharge Condition Upon Discharge: stable Discharge Disposition Patient was discharged to Home (01) Discharge Instructions Discharge Instructions Special Instructions I have been assigned to complete a D/C Summary on this account. I was not involved in the patient management Nataliya Pierre NP May 10, 2018 09:45
--- NOTE | 2018-05-12 02:45 | Operative Note - Dictated ---
DATE OF OPERATION: 05/05/2018 PREOPERATIVE DIAGNOSES: 1. BPH. 2. Hematuria. 3. Urinary retention. POSTOPERATIVE DIAGNOSES: 1. BPH. 2. Hematuria. 3. Urinary retention. OPERATION: Transurethral resection of the prostate. ASSISTANT PLANT CONTROL OPERATOR: Eladio Vee M.D. ANESTHESIA: General. FINDINGS: Enlarged median lobe of the prostate and lateral lobes. INDICATIONS FOR SURGERY: The patient had previous stroke multiple years ago with acute bleeding, hematuria, recently with urinary tract infection. Cystoscopy showed pressure on the right side. Treatment options were explained to him in great length including all potential complications and he signed a consent. DESCRIPTION OF OPERATION: He was brought to the operating room, placed in lithotomy position, and prepped and draped in a standard fashion. Under general anesthesia, resectoscope was introduced into the bladder. The prostrate was sequentially resected in all four quadrants including anterior and posterior trivedi. Approximately 40 g chips were evacuated with the [employer] evacuator. Using VaporTrode, bleeding was stopped and coagulated in the site of the prostate prostate was resected. Brambila catheter, 24 three-way with 30 mL balloon was placed and left indwelling. Sponge count and instrument count were correct. The patient tolerated the procedure well. Eladio Vee M.D. DR: ERAN JOB#: [id number] CC:
== END 2018-05-07 13:35 | disposition home or self-care (01) | DRG 714 ==
LOC: SDSOVERFLO 05-05 11:35 → 3E 05-05 18:39
PROC: 0VT08ZZ Resection of Prostate, Via Natural or Artificial Opening Endoscopic (ICD-10-PCS; principal; 2018-05-05 14:15)
DX: N40.1 Benign prostatic hyperplasia with lower urinary tract symptoms (principal); R33.8 Other retention of urine; Z95.0 Presence of cardiac pacemaker; I10 Essential (primary) hypertension; R31.9 Hematuria, unspecified; E11.9 Type 2 diabetes mellitus without complications; Z79.01 Long term (current) use of anticoagulants; Z79.84 Long term (current) use of oral hypoglycemic drugs; I34.0 Nonrheumatic mitral (valve) insufficiency; Z86.73 Personal history of transient ischemic attack (TIA), and cerebral infarction without residual deficits
CPT/HCPCS: 36415; 80048; 82962; 85025; 86850; 86900; 86901; 87081; 94003; 94150; 94640; 94664; J1815; J2250; J2405